=== PATIENT | male | born 1955 | race African-American/Black ===

== ENCOUNTER 2016-10-18 13:37 | Inpatient (IN) | payer OTHER ==
--- NOTE | 2016-10-18 17:12 | HP ---
CIWA Score - CIWA Score Nausea/Vomitin-Mild Nausea/No Vomiting Muscle Tremors: 4-Moderate,w/Arms Extend Anxiety: 4-Mod. Anxious/Guarded Agitation: 4-Moderately Restless Paroxysmal Sweats: 1-Minimal Palms Moist Orientation: 3-Disoriented Date>2 days Tacttile Disturbances: 0-None Auditory Disturbances: 0-None Visual Disturbances: 0-None Headache: 0-None Present CIWA-Ar Total Score: 17 Admission ROS S - HPI Chief Complaint: withdrawal sx Allergies/Adverse Reactions: Allergies Allergy/AdvReac Type Severity Reaction Status Date / Time No Known Allergies Allergy Verified 10/18/16 18:16 History of Present Illness: 61 years old male with long history of alcohol nicotine dependence denies medical denies mental illness is admitted to detox Exam Limitations: No Limitations - Ebola screening Have you traveled outside of the country in the last 21 days: No Have you had contact with anyone from an Ebola affected area: No Have you been sick,other than usual withdrawal symptoms: No Do you have a fever: No - Review of Systems Constitutional: Chills, Loss of Appetite, Changes in sleep, Unintentional Wgt. Loss, Unexplained wgt Loss EENT: reports: No Symptoms Reported Respiratory: reports: No Symptoms reported Cardiac: reports: No Symptoms Reported GI: reports: Nausea, Poor Appetite, Poor Fluid Intake, Abdominal cramping : reports: No Symptoms Reported Musculoskeletal: reports: No Symptoms Reported Integumentary: reports: No Symptoms Reported Neuro: reports: Tremors Endocrine: reports: No Symptoms Reported Hematology: reports: No Symptoms Reported Psychiatric: reports: Judgement Intact, Mood/Affect Appropiate Other Systems: Reviewed and Negative Patient History - Patient Medical History Hx Anemia: No Hx Asthma: No Hx Chronic Obstructive Pulmonary Disease (COPD): No Hx Cancer: No Hx Cardiac Disorders: No Hx Congestive Heart Failure: No Hx Hypertension: No Hx Hypercholesterolemia: No Hx Pacemaker: No HX Cerebrovascular Accident: No Hx Seizures: No Hx Dementia: No Hx Diabetes: No Hx Gastrointestinal Disorders: No Hx Liver Disease: No Hx Genitourinary Disorders: No Hx Sexually Transmitted Disorders: No Hx Renal Disease (ESRD): No Hx Thyroid Disease: No Hx Human Immunodeficiency Virus (HIV): No (2013 LAST NEGATIVE) Hx Hepatitis C: No Hx Depression: No Hx Suicide Attempt: No Hx Bipolar Disorder: No Hx Schizophrenia: No - Patient Surgical History Past Surgical History: Yes Hx Neurologic Surgery: No Hx Cataract Extraction: No Hx Cardiac Surgery: No Hx Lung Surgery: No Hx Breast Surgery: No Hx Breast Biopsy: No Hx Abdominal Surgery: No Hx Appendectomy: No Hx Cholecystectomy: No Hx Genitourinary Surgery: No Hx Orthopedic Surgery: Yes (2015 fall, left ankle fracture) Anesthesia Reaction: No - PPD History Previous Implant?: Yes Documented Results: Negative w/proof Implanted On Prior [facility] Admission?: Yes Date: 02/13/15 Results: 0 MM PPD to be Administered?: Yes - Smoking Cessation Smoking history: Current every day smoker Have you smoked in the past 12 months: Yes Aproximately how many cigarettes per day: 3 Cigars Per Day: 0 Hx Chewing Tobacco Use: No Initiated information on smoking cessation: Yes 'Breaking Loose' booklet given: 10/18/16 - Substance & Tx. History Hx Alcohol Use: Yes Hx Substance Use: No Substance Use Type: Alcohol Hx Substance Use Treatment: Yes - Substances Abused Alcohol Route: Oral Frequency: Daily Amount used: liquor- 2 pints, beer- 2 six pack Age of first use: 22 Date of Last Use: 10/18/16 Family Disease History - Family Disease History Family History: Unremarkable Other Family History: only child Admission Physical Exam BHS - Vital Signs Vital Signs: Vital Signs - 24 hr 10/18/16 16:22 Temperature 97 F L Pulse Rate 98 H Respiratory 20 Rate Blood Pressure 124/83 - Physical General Appearance: Yes: Appropriately Dressed, Moderate Distress, Alcohol on Breath, Thin, Tremorous, Irritable, Sweating, Anxious HEENTM: Yes: Hearing grossly Normal, Normal ENT Inspection, Normocephalic, Normal Voice Respiratory: Yes: Chest Non-Tender, Lungs Clear, Normal Breath Sounds, No Respiratory Distress, No Accessory Muscle Use Neck: Yes: Supple, Trachea in good position Breast: Yes: Breasts Symetrical Cardiology: Yes: Regular Rhythm, S1, S2, Tachycardia Abdominal: Yes: Non Tender, Soft Genitourinary: Yes: Within Normal Limits Back: Yes: Normal Inspection Musculoskeletal: Yes: full range of Motion, Gait Steady Extremities: Yes: Normal Range of Motion, Non-Tender, Tremors Neurological: Yes: Alert, Motor Strength 5/5, Normal Mood/Affect, Normal Response Integumentary: Yes: Warm Lymphatic: Yes: Within Normal Limits - Diagnostic (1) Alcohol dependence with uncomplicated withdrawal Current Visit: Yes Status: Acute (2) Nicotine dependence Current Visit: Yes Status: Acute Qualifiers: Nicotine product type: cigarettes Substance use status: in withdrawal Qualified Code(s): F17.213 - Nicotine dependence, cigarettes, with withdrawal (3) Weight loss Current Visit: Yes Status: Acute Cleared for Admission S - Detox or Rehab S Level of Care: Medically Managed Detox Regimen/Protocol: Librium BHS Breath Alcohol Content Breath Alcohol Content: 0.135 Urine Drug Screen - Results Drug Screen Negative: Yes
[2016-10-18] MEDS ORDERED: IBUPROFEN 400 MG TABLET (FP) PO PRN (19:32)
[2016-10-18] MEDS ORDERED: diphenhydrAMINE HCL 50 MG CAPSULE PO PRN (19:32)
[2016-10-18] MEDS ORDERED: MENTHOL/PHENOL 1 EACH UD MM PRN (19:32)
[2016-10-18] MEDS ORDERED: hydrOXYzine PAMOATE 50 MG CAPSULE (FP) PO PRN (19:32)
[2016-10-18] MEDS ORDERED: ACETAMINOPHEN 325 MG TABLET (FP) PO PRN (19:32)
[2016-10-18] MEDS ORDERED: MAGNESIUM HYDROX 2400MG/30ML ORAL SUSPENSION 30 ML CUP PO PRN (19:32)
[2016-10-18] MEDS ORDERED: guaiFENesin/D-METHORPHAN HB 10 ML UNIT-DOSE CUPS PO PRN (19:32)
[2016-10-18] MEDS ORDERED: P-EPHED 60MG/TRIPROLIDI 2.5MG TABLET PO PRN (19:32)
[2016-10-18] MEDS ORDERED: NICOTINE POLACRILEX 2 MG GUM BC PRN (19:32)
[2016-10-18] MEDS ORDERED: MAGNESIUM CITRATE 300 ML BOTTLE PO PRN (19:32)
[2016-10-18] MEDS ORDERED: MAG HYDROX/AL HYDROX/SIMETH 30 ML UNIT-DOSE CUP PO PRN (19:32)
[2016-10-18] MEDS ORDERED: chlordiazePOXIDE HCL 25 MG CAPSULE PO PRN (19:32)
[2016-10-18] MEDS ORDERED: LOPERAMIDE HCL 2 MG CAPSULE PO PRN (19:32)
[2016-10-18] MEDS: THIAMINE HCL 100 MG TABLET (FP) PO SCH (21:07)
[2016-10-18 22:33] LABS: URINE APPEARANCE CLEAR; URINE BILIRUBIN NEGATIVE (NEGATIVE); URINE BLOOD 1+ (NEGATIVE); URINE COLOR LTYELLOW; URINE GLUCOSE (UA) NEGATIVE (NEGATIVE); URINE KETONE NEGATIVE (NEGATIVE); URINE LEUK ESTERASE NEGATIVE (NEGATIVE); URINE NITRITE NEGATIVE (NEGATIVE); URINE PROTEIN NEGATIVE (NEGATIVE); URINE UROBILINOGEN NEGATIVE E.U./dl (0.2-1.0)
[2016-10-18] MEDS: chlordiazePOXIDE HCL 25 MG CAPSULE PO SCH (22:37)
[2016-10-18 22:38] LABS: URINE BACTERIA RARE /hpf (NONE SEEN); URINE RBC 4 /hpf (0-3); URINE WBC 1 /hpf (3-5)
[2016-10-19] MEDS: chlordiazePOXIDE HCL 25 MG CAPSULE PO SCH ×4 (06:13→23:08)
[2016-10-19 10:36] LABS: MCH 31.2 pg (25.7-33.7); MCHC 32.7 g/dl (32.0-35.9); MEAN CELL VOLUME 95.6 fl (80-96); MEAN PLT VOLUME 11.5 fl (7.5-11.1); PLATELET COUNT 119 K/MM3 (134-434); RDW 14.4 % (11.9-15.9); WHITE BLOOD COUNT 3.8 K/mm3 (4.0-10.0)
[2016-10-19] MEDS: NICOTINE 14 MG/24 HOURS TOPICAL PATCH TD SCH (10:41)
[2016-10-19] MEDS: PRENATAL VITAMINS W/ FOLIC ACID TABLET (FP) PO SCH (10:41)
[2016-10-19 12:23] LABS: ALBUMIN 3.9 g/dl (3.4-5.0); ANION GAP 11 (8-16); CALCIUM 9.6 mg/dL (8.5-10.1); CO2 31 mmol/L (21-32); GLUCOSE,RANDOM 107 mg/dL (74-106); SGOT/AST 143 U/L (15-37); SGPT/ALT 67 U/L (12-78)
[2016-10-19 12:25] LABS: ALK PHOS 97 U/L (45-117); BILIRUBIN,TOTAL 0.6 mg/dL (0.2-1.0); TOT PROT 7.3 g/dl (6.4-8.2)
--- NOTE | 2016-10-19 16:27 | PN ---
[facility] CIWA - CIWA Score Nausea/Vomitin-Mild Nausea/No Vomiting Muscle Tremors: 3 Anxiety: 4-Mod. Anxious/Guarded Agitation: 2 Paroxysmal Sweats: 2 Orientation: 0-Oriented Tacttile Disturbances: 2-Mild Itch/Numbness/Burn Auditory Disturbances: 0-None Visual Disturbances: 2-Mild Sensitivity Headache: 0-None Present CIWA-Ar Total Score: 16 S Progress Note (SOAP) Subjective: Anxious, Sweating. Objective: PT. A & O X 3, OBSERVED AMBULATING ON UNIT. 10/19/16 16:25 Vital Signs Temperature 96.9 F L 10/19/16 13:33 Pulse Rate 95 H 10/19/16 13:33 Respiratory Rate 18 10/19/16 13:33 Blood Pressure 127/88 10/19/16 13:33 O2 Sat by Pulse Oximetry (%) Laboratory Last Values WBC 3.8 K/mm3 (4.0-10.0) L 10/19/16 06:00 RBC 4.00 M/mm3 (4.00-5.60) 10/19/16 06:00 Hgb 12.5 GM/dL (11.7-16.9) 10/19/16 06:00 Hct 38.2 % (35.4-49) 10/19/16 06:00 MCV 95.6 fl (80-96) 10/19/16 06:00 MCHC 32.7 g/dl (32.0-35.9) 10/19/16 06:00 RDW 14.4 % (11.9-15.9) 10/19/16 06:00 Plt Count 119 K/MM3 (134-434) L 10/19/16 06:00 MPV 11.5 fl (7.5-11.1) H 10/19/16 06:00 Sodium 140 mmol/L (136-145) 10/19/16 06:00 Potassium 3.6 mmol/L (3.5-5.1) 10/19/16 06:00 Chloride 98 mmol/L (98-107) 10/19/16 06:00 Carbon Dioxide 31 mmol/L (21-32) 10/19/16 06:00 Anion Gap 11 (8-16) 10/19/16 06:00 BUN 11 mg/dL (7-18) D 10/19/16 06:00 Creatinine 1.0 mg/dL (0.7-1.3) D 10/19/16 06:00 Creat Clearance w eGFR > 60 (>60) 10/19/16 06:00 Random Glucose 107 mg/dL (74-106) H 10/19/16 06:00 Calcium 9.6 mg/dL (8.5-10.1) 10/19/16 06:00 Total Bilirubin 0.6 mg/dL (0.2-1.0) D 10/19/16 06:00 AST 143 U/L (15-37) H 10/19/16 06:00 ALT 67 U/L (12-78) D 10/19/16 06:00 Alkaline Phosphatase 97 U/L (45-117) D 10/19/16 06:00 Total Protein 7.3 g/dl (6.4-8.2) 10/19/16 06:00 Albumin 3.9 g/dl (3.4-5.0) 10/19/16 06:00 Urine Color Ltyellow 10/18/16 21:29 Urine Appearance Clear 10/18/16 21:29 Urine pH 6.0 (5.0-8.0) 10/18/16 21:29 Ur Specific [place] 1.005 (1.001-1.035) 10/18/16 21:29 Urine Protein Negative (NEGATIVE) 10/18/16 21:29 Urine Glucose (UA) Negative (NEGATIVE) 10/18/16 21:29 Urine Ketones Negative (NEGATIVE) 10/18/16 21:29 Urine Blood 1+ (NEGATIVE) H 10/18/16 21:29 Urine Nitrite Negative (NEGATIVE) 10/18/16 21:29 Urine Bilirubin Negative (NEGATIVE) 10/18/16 21:29 Urine Urobilinogen Negative E.U./dl (0.2-1.0) 10/18/16 21:29 Ur Leukocyte Esterase Negative (NEGATIVE) 10/18/16 21:29 Urine RBC 4 /hpf (0-3) 10/18/16 21:29 Urine WBC 1 /hpf (3-5) 10/18/16 21:29 Urine Bacteria Rare /hpf (NONE SEEN) 10/18/16 21:29 RPR Titer Nonreactive (NONREACTIVE) 10/19/16 06:00 LABS NOTED. Assessment: 10/19/16 16:26 WITHDRAWAL SYMPTOMS. Plan: CONTINUE DETOX. ADVISED PATIENT TO FOLLOW-UP WITH MANAGER ENDOSCOPY / REHAB MEDICAL PROVIDER AFTER DISCHARGE FROM DETOX FOR GENERAL MEDICAL ASSESSMENT AND FOR ANY ABNORMAL ADMISSION LAB VALUES.
[2016-10-19] MEDS: THIAMINE HCL 100 MG TABLET (FP) PO SCH (23:08)
[2016-10-20] MEDS: chlordiazePOXIDE HCL 25 MG CAPSULE PO SCH ×3 (05:51→17:33)
[2016-10-20] MEDS: NICOTINE 14 MG/24 HOURS TOPICAL PATCH TD SCH (10:52)
[2016-10-20] MEDS: PRENATAL VITAMINS W/ FOLIC ACID TABLET (FP) PO SCH (10:52)
--- NOTE | 2016-10-20 11:39 | EKG ---
Test Reason : Blood Pressure : / mmHG Vent. Rate : 081 BPM Atrial Rate : 081 BPM P-R Int : 116 ms QRS Dur : 084 ms QT Int : 362 ms P-R-T Axes : 064 071 072 degrees QTc Int : 420 ms NORMAL SINUS RHYTHM NORMAL ECG NO PREVIOUS ECGS AVAILABLE Confirmed by JOEL HARDING MD ([id number]) on 10/20/2016 11:39:14 AM Referred By: Confirmed By:JOEL HARDING MD
--- NOTE | 2016-10-20 12:30 | PN ---
S CIWA - CIWA Score Nausea/Vomitin-Mild Nausea/No Vomiting Muscle Tremors: 4-Moderate,w/Arms Extend Anxiety: 4-Mod. Anxious/Guarded Agitation: 4-Moderately Restless Paroxysmal Sweats: No Perspiration Orientation: 0-Oriented Tacttile Disturbances: 1-Very Mild Itch/Numbness Auditory Disturbances: 0-None Visual Disturbances: 0-None Headache: 2-Mild CIWA-Ar Total Score: 16 BHS Progress Note (SOAP) Subjective: Nausea, Objective: Last Vital Signs Temp Pulse Resp BP Pulse Ox 96.5 F L 104 H 18 144/98 10/20/16 12:09 10/20/16 12:09 10/20/16 12:09 10/20/16 12:09 Laboratory Tests 10/18/16 10/19/16 10/19/16 21:29 06:00 06:00 WBC 3.8 L RBC 4.00 Hgb 12.5 Hct 38.2 MCV 95.6 MCHC 32.7 RDW 14.4 Plt Count 119 L MPV 11.5 H Sodium 140 Potassium 3.6 Chloride 98 Carbon Dioxide 31 Anion Gap 11 BUN 11 D Creatinine 1.0 D Creat Clearance w eGFR > 60 Random Glucose 107 H Calcium 9.6 Total Bilirubin 0.6 D AST 143 H ALT 67 D Alkaline Phosphatase 97 D Total Protein 7.3 Albumin 3.9 Urine Color Ltyellow Urine Appearance Clear Urine pH 6.0 Ur Specific [place] 1.005 Urine Protein Negative Urine Glucose (UA) Negative Urine Ketones Negative Urine Blood 1+ H Urine Nitrite Negative Urine Bilirubin Negative Urine Urobilinogen Negative Ur Leukocyte Esterase Negative Urine RBC 4 Urine WBC 1 Urine Bacteria Rare RPR Titer 10/19/16 06:00 WBC RBC Hgb Hct MCV MCHC RDW Plt Count MPV Sodium Potassium Chloride Carbon Dioxide Anion Gap BUN Creatinine Creat Clearance w eGFR Random Glucose Calcium Total Bilirubin AST ALT Alkaline Phosphatase Total Protein Albumin Urine Color Urine Appearance Urine pH Ur Specific [place] Urine Protein Urine Glucose (UA) Urine Ketones Urine Blood Urine Nitrite Urine Bilirubin Urine Urobilinogen Ur Leukocyte Esterase Urine RBC Urine WBC Urine Bacteria RPR Titer Nonreactive Labs noted: UA noted with microscopic hematuria Assessment: 10/20/16 12:47 Withdrawal symptoms Noted with microscopic hematuria Plan: Continue detox Microscopic hematuria: encouraged to drink lots of water, repeat UA
[2016-10-20] MEDS: chlordiazePOXIDE 5 MG CAPSULE PO SCH (22:29)
[2016-10-20] MEDS: THIAMINE HCL 100 MG TABLET (FP) PO SCH (22:29)
[2016-10-21] MEDS: chlordiazePOXIDE 5 MG CAPSULE PO SCH ×3 (05:44→17:44)
[2016-10-21 10:07] LABS: URINE APPEARANCE CLEAR; URINE BILIRUBIN NEGATIVE (NEGATIVE); URINE BLOOD NEGATIVE (NEGATIVE); URINE COLOR STRAW; URINE GLUCOSE (UA) NEGATIVE (NEGATIVE); URINE KETONE NEGATIVE (NEGATIVE); URINE NITRITE NEGATIVE (NEGATIVE); URINE PROTEIN NEGATIVE (NEGATIVE); URINE UROBILINOGEN NEGATIVE E.U./dl (0.2-1.0)
[2016-10-21 10:08] LABS: URINE LEUK ESTERASE 1+ (NEGATIVE)
[2016-10-21 10:09] LABS: URINE RBC <1 /hpf (0-3); URINE WBC 1 /hpf (3-5)
[2016-10-21] MEDS: NICOTINE 14 MG/24 HOURS TOPICAL PATCH TD SCH (10:48)
[2016-10-21] MEDS: PRENATAL VITAMINS W/ FOLIC ACID TABLET (FP) PO SCH (10:48)
--- NOTE | 2016-10-21 11:11 | PN ---
BHS Progress Note (SOAP) Subjective: Sweating,interrupted sleep,restless Objective: 10/21/16 11:10 Vital Signs - 8 hr 10/21/16 10/21/16 10/21/16 03:30 06:29 09:58 Temperature 96.9 F L 96.4 F L Pulse Rate 107 H 89 Respiratory 18 18 18 Rate Blood Pressure 146/99 136/90 Laboratory Last Values WBC 3.8 K/mm3 (4.0-10.0) L 10/19/16 06:00 RBC 4.00 M/mm3 (4.00-5.60) 10/19/16 06:00 Hgb 12.5 GM/dL (11.7-16.9) 10/19/16 06:00 Hct 38.2 % (35.4-49) 10/19/16 06:00 MCV 95.6 fl (80-96) 10/19/16 06:00 MCHC 32.7 g/dl (32.0-35.9) 10/19/16 06:00 RDW 14.4 % (11.9-15.9) 10/19/16 06:00 Plt Count 119 K/MM3 (134-434) L 10/19/16 06:00 MPV 11.5 fl (7.5-11.1) H 10/19/16 06:00 Sodium 140 mmol/L (136-145) 10/19/16 06:00 Potassium 3.6 mmol/L (3.5-5.1) 10/19/16 06:00 Chloride 98 mmol/L (98-107) 10/19/16 06:00 Carbon Dioxide 31 mmol/L (21-32) 10/19/16 06:00 Anion Gap 11 (8-16) 10/19/16 06:00 BUN 11 mg/dL (7-18) D 10/19/16 06:00 Creatinine 1.0 mg/dL (0.7-1.3) D 10/19/16 06:00 Creat Clearance w eGFR > 60 (>60) 10/19/16 06:00 Random Glucose 107 mg/dL (74-106) H 10/19/16 06:00 Calcium 9.6 mg/dL (8.5-10.1) 10/19/16 06:00 Total Bilirubin 0.6 mg/dL (0.2-1.0) D 10/19/16 06:00 AST 143 U/L (15-37) H 10/19/16 06:00 ALT 67 U/L (12-78) D 10/19/16 06:00 Alkaline Phosphatase 97 U/L (45-117) D 10/19/16 06:00 Total Protein 7.3 g/dl (6.4-8.2) 10/19/16 06:00 Albumin 3.9 g/dl (3.4-5.0) 10/19/16 06:00 Urine Color Straw 10/21/16 07:00 Urine Appearance Clear 10/21/16 07:00 Urine pH 7.0 (5.0-8.0) 10/21/16 07:00 Ur Specific [place] 1.009 (1.001-1.035) 10/21/16 07:00 Urine Protein Negative (NEGATIVE) 10/21/16 07:00 Urine Glucose (UA) Negative (NEGATIVE) 10/21/16 07:00 Urine Ketones Negative (NEGATIVE) 10/21/16 07:00 Urine Blood Negative (NEGATIVE) 10/21/16 07:00 Urine Nitrite Negative (NEGATIVE) 10/21/16 07:00 Urine Bilirubin Negative (NEGATIVE) 10/21/16 07:00 Urine Urobilinogen Negative E.U./dl (0.2-1.0) 10/21/16 07:00 Ur Leukocyte Esterase 1+ (NEGATIVE) H 10/21/16 07:00 Urine RBC <1 /hpf (0-3) 10/21/16 07:00 Urine WBC 1 /hpf (3-5) 10/21/16 07:00 Urine Bacteria Rare /hpf (NONE SEEN) 10/18/16 21:29 RPR Titer Nonreactive (NONREACTIVE) 10/19/16 06:00 labs noted Assessment: 10/21/16 11:10 Withdrawal sx. Plan: Continue detox
[2016-10-21] MEDS: chlordiazePOXIDE HCL 10 MG CAPSULE PO SCH (22:37)
[2016-10-21] MEDS: THIAMINE HCL 100 MG TABLET (FP) PO SCH (22:37)
[2016-10-22] MEDS: chlordiazePOXIDE HCL 10 MG CAPSULE PO SCH (05:30)
[2016-10-22 06:24] VITALS: BP 127/93; PULSE 126; TEMP 97.7
--- NOTE | 2016-10-22 12:07 | DS ---
[facility] Detox Discharge Summary Admission Date: 10/18/16 Discharge Date: 10/22/16 - History Present History: Alcohol Dependence Additional Comments: DETOX COMPLETED. ALERT O X 3. NAD. Pertinent Past History: WEIGHT LOSS S/P LEFT ANKLE FX - Physical Exam Results Vital Signs: Vital Signs Temperature 97.7 F 10/22/16 06:23 Pulse Rate 126 H 10/22/16 06:23 Respiratory Rate 18 10/22/16 06:23 Blood Pressure 127/93 10/22/16 06:23 O2 Sat by Pulse Oximetry (%) Pertinent Admission Physical Exam Findings: WITHDRAWAL SX - Treatment Hospital Course: Detox Protocol Followed, Detoxed Safely, Responded well, Discharged Condition Good - Medication Discharge Medications: Ambulatory Orders NK [No Known Home Medication] 02/11/15 - Diagnosis (1) Alcohol dependence with uncomplicated withdrawal Status: Acute (2) Nicotine dependence Status: Acute Qualifiers: Nicotine product type: cigarettes Substance use status: in withdrawal Qualified Code(s): F17.213 - Nicotine dependence, cigarettes, with withdrawal (3) Weight loss Status: Acute - AMA Did Patient Leave Against Medical Advice: No
== END 2016-10-22 09:29 | disposition home or self-care (01) | DRG 775 ==
LOC: YASAS 13:37 → Y3N 20:05
PROVIDERS: ADMIT Internal Medicine Addiction Medicine; ATTEND Internal Medicine Addiction Medicine
PROC: HZ2ZZZZ Detoxification Services for Substance Abuse Treatment (ICD-10-PCS; principal; 2016-10-22)
DX: F10.230 Alcohol dependence with withdrawal, uncomplicated (principal); F17.213 Nicotine dependence, cigarettes, with withdrawal; R63.4 Abnormal weight loss; Z68.20 Body mass index [BMI] 20.0-20.9, adult; Z59.0 Homelessness
CPT/HCPCS: 36415; 80053; 81003; 81015; 85027; 86593; 93005; 93010

== ENCOUNTER 2018-06-28 17:44 | Inpatient (IN) | payer OTHER ==
--- NOTE | 2018-06-28 18:00 | HP ---
CIWA Score Nausea/Vomitin Muscle Tremors: 2 Anxiety: 2 Agitation: 2 Paroxysmal Sweats: 1-Minimal Palms Moist Orientation: 0-Oriented Tacttile Disturbances: 1-Very Mild Itch/Numbness Auditory Disturbances: 1-Very Mild Visual Disturbances: 0-None Headache: 2-Mild CIWA-Ar Total Score: 13 - Admission Criteria [facility] Guidelines: Admission for Medically Managed Detox: Requires at least one of the followin. CIWA greater than 12 2. Seizures within the past 24 hours 3. Delirium tremens within the past 24 hours 4. Hallucinations within the past 24 hours 5. Acute intervention needed for co occurring medical disorder 6. Acute intervention needed for co occurring psychiatric disorder 7. Severe withdrawal that cannot be handled at a lower level of care (continued vomiting, continued diarrhea, abnormal vital signs) requiring intravenous medication and/or fluids 8. Patient presents the following: CIWA greater than 12 Admission Criteria Met: Admission criteria met Admission ROS BHS - HPI Chief Complaint: i need help to stop drinking alcohol Allergies/Adverse Reactions: Allergies Allergy/AdvReac Type Severity Reaction Status Date / Time No Known Allergies Allergy Verified 06/28/18 17:53 History of Present Illness: this 63 years old male with alcohol dependence,seeking help to stop,seen in [facility] today, last detox 10/18/17 to 10/22/16 syncope alcohol related nicotine dependence history of fx of left ankle in 2017 no significant period of sobriety Exam Limitations: No Limitations, Intoxication - Ebola screening Have you traveled outside of the country in the last 21 days: No Have you been sick,other than usual withdrawal symptoms: No - Review of Systems Constitutional: Malaise, Night Sweats, Changes in sleep, Weakness, Unintentional Wgt. Loss EENT: reports: Nose Congestion Respiratory: reports: No Symptoms reported Cardiac: reports: Palpitations GI: reports: Nausea, Poor Appetite, Abdominal cramping : reports: No Symptoms Reported Musculoskeletal: reports: Back Pain, Muscle Pain Integumentary: reports: Dryness Neuro: reports: Tremors Endocrine: reports: No Symptoms Reported Hematology: reports: No Symptoms Reported Psychiatric: reports: No Sypmtoms Reported, Judgement Intact, Mood/Affect Appropiate, Orientated x3 Patient History - Patient Medical History Hx Anemia: No Hx Asthma: No Hx Chronic Obstructive Pulmonary Disease (COPD): No Hx Cancer: No Hx Cardiac Disorders: No Hx Congestive Heart Failure: No Hx Hypertension: No Hx Hypercholesterolemia: No Hx Pacemaker: No HX Cerebrovascular Accident: No Hx Seizures: No Hx Dementia: No Hx Diabetes: No Hx Gastrointestinal Disorders: No Hx Liver Disease: No Hx Genitourinary Disorders: No Hx Sexually Transmitted Disorders: No Hx Renal Disease (ESRD): No Hx Thyroid Disease: No Hx Human Immunodeficiency Virus (HIV): No (2017 LAST NEGATIVE) Hx Hepatitis C: No Hx Depression: No Hx Suicide Attempt: No Hx Bipolar Disorder: No Hx Schizophrenia: No Other Medical History: no suicidal,no homicidal - Patient Surgical History Past Surgical History: Yes Hx Neurologic Surgery: No Hx Cataract Extraction: No Hx Cardiac Surgery: No Hx Lung Surgery: No Hx Breast Surgery: No Hx Breast Biopsy: No Hx Abdominal Surgery: No Hx Appendectomy: No Hx Cholecystectomy: No Hx Genitourinary Surgery: No Hx Section: No Hx Orthopedic Surgery: Yes (2017 fall, left ankle fracture) Anesthesia Reaction: No - PPD History Previous Implant?: Yes Documented Results: Negative w/o proof Implanted On Prior [facility] Admission?: Yes Date: 10/20/16 Results: 0 MM PPD to be Administered?: Yes - Smoking Cessation Smoking history: Current every day smoker Have you smoked in the past 12 months: Yes Aproximately how many cigarettes per day: 3 Cigars Per Day: 0 Hx Chewing Tobacco Use: No Initiated information on smoking cessation: Yes 'Breaking Loose' booklet given: 06/28/18 - Substance & Tx. History Hx Alcohol Use: Yes Hx Substance Use: No Substance Use Type: Alcohol Hx Substance Use Treatment: Yes ([facility] 10/18/16 to 10/22/16) - Substances Abused Alcohol Route: Oral Frequency: Daily Amount used: 2 and half pints of vodka Age of first use: 22 Date of Last Use: 06/28/18 Family Disease History - Family Disease History Family History: Denies Admission Physical Exam S - Vital Signs Vital Signs: Vital Signs - 24 hr 06/28/18 17:50 Temperature 98.2 F Pulse Rate 100 H Respiratory 18 Rate Blood Pressure 133/83 - Physical General Appearance: Yes: Moderate Distress, Alcohol on Breath, Tremorous, Sweating, Anxious HEENTM: Yes: Normal ENT Inspection, ANDRY, Pharynx Normal Respiratory: Yes: Lungs Clear, Normal Breath Sounds, No Respiratory Distress Neck: Yes: Within Normal Limits, Supple, Trachea in good position Breast: Yes: Within Normal Limits Cardiology: Yes: Tachycardia Abdominal: Yes: Within Normal Limits, Normal Bowel Sounds, Non Tender, Flat, Soft Genitourinary: Yes: Within Normal Limits Back: Yes: Muscle Spasm Musculoskeletal: Yes: Back pain, Muscle Pain Extremities: Yes: Tremors (s/p fx of left ankle), Other (scar of left ankle ulcer left second digit toe ,poor hygiene of toes) 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, Fully Oriented, Alert, Motor Strength 5/5 Integumentary: Yes: Dry Lymphatic: Yes: Within Normal Limits - Diagnostic (1) Alcohol dependence with uncomplicated withdrawal Current Visit: No Status: Acute (2) Nicotine dependence Current Visit: No Status: Acute Qualifiers: Nicotine product type: cigarettes Substance use status: in withdrawal Qualified Code(s): F17.213 - Nicotine dependence, cigarettes, with withdrawal (3) Weight loss Current Visit: No Status: Acute (4) Alcohol dependence with uncomplicated intoxication Current Visit: Yes Status: Acute (5) History of fracture of left ankle Current Visit: Yes Status: Acute (6) Ulcer of left second toe Current Visit: Yes Status: Acute Cleared for Admission [facility] - Detox or Rehab [facility] Level of Care: Medically Managed Detox Regimen/Protocol: Librium S Breath Alcohol Content Breath Alcohol Content: 0.344 Urine Drug Screen - Results Drug Screen Negative: Yes
[2018-06-28] MEDS ORDERED: MAGNESIUM CITRATE 300 ML BOTTLE PO PRN (18:11)
[2018-06-28] MEDS ORDERED: hydrOXYzine PAMOATE 25 MG CAPSULE (FP) PO PRN (18:11)
[2018-06-28] MEDS ORDERED: chlordiazePOXIDE HCL 25 MG CAPSULE PO PRN (18:11)
[2018-06-28] MEDS ORDERED: MAGNESIUM HYDROX 2400MG/30ML ORAL SUSPENSION 30 ML CUP PO PRN (18:11)
[2018-06-28] MEDS ORDERED: LOPERAMIDE HCL 2 MG CAPSULE PO PRN (18:11)
[2018-06-28] MEDS ORDERED: guaiFENesin/D-METHORPHAN HB 10 ML UNIT-DOSE CUPS PO PRN (18:11)
[2018-06-28] MEDS ORDERED: MAG HYDROX/AL HYDROX/SIMETH 30 ML UNIT-DOSE CUP PO PRN (18:11)
[2018-06-28] MEDS ORDERED: ACETAMINOPHEN 325 MG TABLET (FP) PO PRN (18:11)
[2018-06-28] MEDS ORDERED: MENTHOL/PHENOL 1 EACH UD MM PRN (18:11)
[2018-06-28] MEDS ORDERED: P-EPHED 60MG/TRIPROLIDI 2.5MG TABLET PO PRN (18:11)
[2018-06-28] MEDS ORDERED: IBUPROFEN 400 MG TABLET (FP) PO PRN (18:11)
[2018-06-28 18:24] VITALS: BMI 19.3
[2018-06-28] MEDS ORDERED: MELATONIN 5 MG TABLETS PO PRN (22:00)
[2018-06-28] MEDS: chlordiazePOXIDE HCL 25 MG CAPSULE PO SCH (23:44)
[2018-06-28] MEDS: BACITRACIN 0.9 GM PACKET TP SCH (23:44)
[2018-06-28] MEDS: THIAMINE HCL 100 MG TABLET (FP) PO SCH (23:45)
[2018-06-29 00:45] LABS: URINE APPEARANCE CLEAR; URINE BILIRUBIN NEGATIVE (<2.0 mg/dL); URINE COLOR STRAW; URINE GLUCOSE (UA) NEGATIVE (NEGATIVE); URINE KETONE NEGATIVE (NEGATIVE); URINE LEUK ESTERASE NEGATIVE (NEGATIVE); URINE NITRITE NEGATIVE (NEGATIVE); URINE PROTEIN NEGATIVE (NEGATIVE); URINE UROBILINOGEN NEGATIVE mg/dL (0.2-1.0)
[2018-06-29] MEDS: chlordiazePOXIDE HCL 25 MG CAPSULE PO SCH ×4 (05:14→22:20)
[2018-06-29] MEDS ORDERED: PRENATAL VITAMINS W/ FOLIC ACID TABLET (FP) PO SCH (10:00)
[2018-06-29] MEDS: BACITRACIN 0.9 GM PACKET TP SCH ×2 (10:19→22:43)
--- NOTE | 2018-06-29 10:29 | PN ---
S CIWA - CIWA Score Nausea/Vomitin-No Nausea/No Vomiting Muscle Tremors: 2 Anxiety: 3 Agitation: 3 Paroxysmal Sweats: No Perspiration Orientation: 1-Uncertain about Date Tacttile Disturbances: 0-None Auditory Disturbances: 0-None Visual Disturbances: 0-None Headache: 0-None Present CIWA-Ar Total Score: 9 BHS Progress Note (SOAP) Subjective: PATIENT C/O ANXIETY, RESTLESSNESS AND SHAKES. Objective: 06/29/18 10:25 Laboratory Tests 06/29/18 00:15 Urine Color Straw Urine Appearance Clear Urine pH 6.0 Ur Specific [place] 1.004 L Urine Protein Negative Urine Glucose (UA) Negative Urine Ketones Negative Urine Blood 2+ H Urine Nitrite Negative Urine Bilirubin Negative Urine Urobilinogen Negative Ur Leukocyte Esterase Negative Urine WBC (Auto) <1 Urine RBC (Auto) <1 Laboratory Tests 06/29/18 00:15 Urine Color Straw Urine Appearance Clear Urine pH 6.0 Ur Specific [place] 1.004 L Urine Protein Negative Urine Glucose (UA) Negative Urine Ketones Negative Urine Blood 2+ H Urine Nitrite Negative Urine Bilirubin Negative Urine Urobilinogen Negative Ur Leukocyte Esterase Negative Urine WBC (Auto) <1 Urine RBC (Auto) <1 Vital Signs Temperature 97.3 F L 06/29/18 09:05 Pulse Rate 98 H 06/29/18 09:05 Respiratory Rate 20 06/29/18 09:05 Blood Pressure 151/93 06/29/18 09:05 O2 Sat by Pulse Oximetry (%) PE: ALERT AND ORIENTED, FORGETFUL WITH DATE SKIN WARM AND DRY CAR S1S2 RESP CTA BL EXT FULL ROM, +TREMORS ANXIOUS, PACING ON UNIT 06/29/18 10:28 Assessment: 06/29/18 10:27 WITHDRAWAL SX Plan: CONTINUE DETOX ENCOURAGE ORAL FLUIDS REPEAT UA CONTINUE TO MONITOR
[2018-06-29 10:34] LABS: HEMATOCRIT 36.5 % (35.4-49); HEMOGLOBIN 11.9 GM/dL (11.7-16.9); MCH 30.7 pg (25.7-33.7); MCHC 32.7 g/dl (32.0-35.9); MEAN CELL VOLUME 93.8 fl (80-96); MEAN PLT VOLUME 9.8 fl (7.5-11.1); PLATELET COUNT 266 K/MM3 (134-434); RBC 3.89 M/mm3 (4.00-5.60); RDW 13.6 % (11.9-15.9); WHITE BLOOD COUNT 5.9 K/mm3 (4.0-10.0)
[2018-06-29 11:08] LABS: ALBUMIN 3.1 g/dl (3.4-5.0); ALK PHOS 89 U/L (45-117); ANION GAP 10 MMOL/L (8-16); BILIRUBIN,TOTAL 0.6 mg/dL (0.2-1); BLOOD UREA NITROGEN 8 mg/dL (7-18); CALCIUM 9.3 mg/dL (8.5-10.1); CHLORIDE 105 mmol/L (98-107); CO2 28 mmol/L (21-32); CREATININE 0.8 mg/dL (0.55-1.3); GLUCOSE,RANDOM 68 mg/dL (74-106); POTASSIUM 4.3 mmol/L (3.5-5.1); SGOT/AST 45 U/L (15-37); SGPT/ALT 22 U/L (13-61); SODIUM 142 mmol/L (136-145); TOT PROT 6.8 g/dl (6.4-8.2)
[2018-06-29] MEDS: THIAMINE HCL 100 MG TABLET (FP) PO SCH (22:20)
[2018-06-30] MEDS: chlordiazePOXIDE HCL 25 MG CAPSULE PO SCH (05:54)
--- NOTE | 2018-06-30 08:34 | PN ---
S Progress Note Note: pt states he is going to his daughters home and wants to leave, pt signed out AMA.
--- NOTE | 2018-06-30 08:38 | DS ---
[facility] Detox Discharge Summary Admission Date: 06/28/18 - History Present History: Alcohol Dependence - Physical Exam Results Vital Signs: Vital Signs Temperature 96.4 F L 06/30/18 06:51 Pulse Rate 108 H 06/30/18 06:51 Respiratory Rate 20 06/30/18 06:51 Blood Pressure 138/96 06/30/18 06:51 O2 Sat by Pulse Oximetry (%) - Treatment Hospital Course: Discharged Condition Good - Medication Discharge Medications: Ambulatory Orders NK [No Known Home Medication] 02/11/15 - Diagnosis (1) History of fracture of left ankle Current Visit: Yes Status: Acute (2) Ulcer of left second toe Current Visit: Yes Status: Acute (3) Alcohol dependence with uncomplicated withdrawal Current Visit: Yes Status: Chronic (4) Nicotine dependence Current Visit: Yes Status: Chronic Qualifiers: Nicotine product type: cigarettes Substance use status: uncomplicated Qualified Code(s): F17.210 - Nicotine dependence, cigarettes, uncomplicated (5) Weight loss Current Visit: No Status: Acute - AMA Did Patient Leave Against Medical Advice: Yes (going home)
[2018-06-30 09:20] VITALS: BP 143/89; PULSE 128; TEMP 97.7
[2018-06-30] MEDS ORDERED: chlordiazePOXIDE 5 MG CAPSULE PO SCH (23:00)
[2018-07-01] MEDS ORDERED: chlordiazePOXIDE HCL 10 MG CAPSULE PO SCH (23:00)
== END 2018-06-30 09:10 | disposition left against medical advice (07) | DRG 770 ==
LOC: YASAS 17:44 → Y6N 17:54
PROVIDERS: ADMIT Neuromusculoskeletal Medicine & OMM; ATTEND Neuromusculoskeletal Medicine & OMM
PROC: HZ2ZZZZ Detoxification Services for Substance Abuse Treatment (ICD-10-PCS; principal; 2018-06-28)
DX: F10.230 Alcohol dependence with withdrawal, uncomplicated (principal); F17.210 Nicotine dependence, cigarettes, uncomplicated; L97.529 Non-pressure chronic ulcer of other part of left foot with unspecified severity; R00.0 Tachycardia, unspecified; Z59.0 Homelessness
CPT/HCPCS: 36415; 80053; 81003; 81015; 85027; 86593

== ENCOUNTER 2019-07-03 10:08 | Inpatient (IN) | payer OTHER ==
--- NOTE | 2019-07-03 10:38 | HP ---
Screened but not Admitted - Documentation of Visit Screened but not Admitted: Yes Left Prior to Completion of Assessment: No Insurance Authorization Denied: No Patient Does Not Meet Criteria for Admission: No Level of Care Recommended at this Time: ER Evaluation/Care (Patient extremely groggy, unable to provide answers, mildly yellow sclera, 95/66 P83, O2 sat 96 , blood sugar =207, narcan given with little change - patient sent to ED for further evaluation and treatment)
[2019-07-03 11:17] VITALS: BMI 19.8
--- NOTE | 2019-07-03 14:10 | HP ---
CIWA Score Nausea/Vomitin Muscle Tremors: 2 Anxiety: 2 Agitation: 1-Slight > Activity Paroxysmal Sweats: 1-Minimal Palms Moist Orientation: 3-Disoriented Date>2 days Tacttile Disturbances: 0-None Auditory Disturbances: 0-None Visual Disturbances: 0-None Headache: 2-Mild CIWA-Ar Total Score: 13 - Admission Criteria OASAS Guidelines: Admission for Medically Managed Detox: Requires at least one of the followin. CIWA greater than 12 2. Seizures within the past 24 hours 3. Delirium tremens within the past 24 hours 4. Hallucinations within the past 24 hours 5. Acute intervention needed for co occurring medical disorder 6. Acute intervention needed for co occurring psychiatric disorder 7. Severe withdrawal that cannot be handled at a lower level of care (continued vomiting, continued diarrhea, abnormal vital signs) requiring intravenous medication and/or fluids 8. Patient presents the following: CIWA greater than 12 Admission Criteria Met: Admission criteria met Admitting History and Physical - Admission History Source: Patient, Medical Record - Past Medical History Psych: Yes: Addictions - Smoking History Smoking history: Current every day smoker Have you smoked in the past 12 months: Yes Aproximately how many cigarettes per day: 3 - Alcohol/Substance Use Hx Alcohol Use: Yes - Social History Usual Living Arrangement: Yes: With Child (lives with adult daughter) ADL: Support Services Admission ROS [facility] Chief Complaint: My doctor said to stop drinking altogether and go get help Allergies/Adverse Reactions: Allergies Allergy/AdvReac Type Severity Reaction Status Date / Time No Known Allergies Allergy Verified 07/03/19 11:05 History of Present Illness: 64 yo gentleman here for detox from alcohol. Patient denies seizures but has had black outs. This is one of several admissions for treatment. Patient states he gets his medical care at [facility]. Lives with his daughter. Patient admits to drinking most days, first thing in the morning. Exam Limitations: No Limitations - Ebola screening Have you traveled outside of the country in the last 21 days: No Have you had contact with anyone from an Ebola affected area: No - Review of Systems Constitutional: Malaise, Changes in sleep, Weakness EENT: reports: Hearing Loss Respiratory: reports: No Symptoms reported Cardiac: reports: No Symptoms Reported GI: reports: Nausea, Poor Appetite, Poor Fluid Intake : reports: Frequency Musculoskeletal: reports: No Symptoms Reported Integumentary: reports: Dryness Neuro: reports: Headache Endocrine: reports: No Symptoms Reported Hematology: reports: No Symptoms Reported Psychiatric: reports: Judgement Intact, Mood/Affect Appropiate, Anxious Other Systems: Reviewed and Negative Patient History - Patient Medical History Hx Anemia: No (sickle trait) Hx Asthma: No Hx Chronic Obstructive Pulmonary Disease (COPD): No Hx Cancer: No Hx Cardiac Disorders: No Hx Congestive Heart Failure: No Hx Hypertension: No Hx Hypercholesterolemia: No Hx Pacemaker: No HX Cerebrovascular Accident: No Hx Seizures: No (denies) Hx Dementia: No Hx Diabetes: No Hx Gastrointestinal Disorders: No Hx Liver Disease: No Hx Genitourinary Disorders: No Hx Sexually Transmitted Disorders: No Hx Renal Disease (ESRD): No Hx Thyroid Disease: No Hx Human Immunodeficiency Virus (HIV): No (2017 LAST NEGATIVE) Hx Hepatitis C: No Hx Depression: No Hx Suicide Attempt: No Hx Bipolar Disorder: No Hx Schizophrenia: No - Patient Surgical History Past Surgical History: Yes Hx Neurologic Surgery: No Hx Cataract Extraction: No Hx Cardiac Surgery: No Hx Lung Surgery: No Hx Breast Surgery: No Hx Breast Biopsy: No Hx Abdominal Surgery: No Hx Appendectomy: No Hx Cholecystectomy: No Hx Genitourinary Surgery: No Hx Section: No Hx Orthopedic Surgery: Yes (2017 fall, left ankle fracture) Anesthesia Reaction: No - PPD History Previous Implant?: Yes Documented Results: Negative w/proof Implanted On Prior [facility] Admission?: Yes Date: 10/20/16 Results: 0 MM PPD to be Administered?: Yes - Reproductive History Patient is a Female of Child Bearing Age (11 -55 yrs old): No - Smoking Cessation Smoking history: Current every day smoker Have you smoked in the past 12 months: Yes Aproximately how many cigarettes per day: 2 Cigars Per Day: 0 Hx Chewing Tobacco Use: No Initiated information on smoking cessation: Yes 'Breaking Loose' booklet given: 07/03/19 (give on floor) - Substance & Tx. History Hx Alcohol Use: Yes Hx Substance Use: No Substance Use Type: Alcohol Hx Substance Use Treatment: Yes - Substances abused Alcohol Substance route: Oral Frequency: 3-6 times per week Amount used: 1 pints of vodka/day Age of first use: 22 Date of last use: 07/03/19 Admission Physical Exam [facility] - Vital Signs Vital Signs: Vital Signs - 24 hr 07/03/19 11:14 Temperature 98.9 F Pulse Rate 102 H Respiratory 20 Rate Blood Pressure 92/60 - Physical General Appearance: Yes: Nourished, Disheveled, Mild Distress, Anxious HEENTM: Yes: EOMI, Hearing grossly Normal, Normocephalic, Pharynx Normal, Hearing Decreased, Other (missing teeth;eyes are rheumy) Respiratory: Yes: No Respiratory Distress, Rhonchi Neck: Yes: No masses,lesions,Nodules Breast: Yes: Breast Exam Deferred Cardiology: Yes: Regular Rhythm, Tachycardia Abdominal: Yes: Flat, Soft Genitourinary: Yes: Frequency Back: Yes: Decreased Range of Motion, Other (foreward head) Musculoskeletal: Yes: Gait Steady Extremities: Yes: Normal Inspection Neurological: Yes: Alert Integumentary: Yes: Normal Color, Dry, Warm Lymphatic: Yes: Within Normal Limits - Diagnostic (1) Alcohol dependence with uncomplicated withdrawal Current Visit: Yes Status: Chronic (2) History of fracture of left ankle Current Visit: Yes Status: Chronic (3) Weight loss Current Visit: Yes Status: Suspected (4) Nicotine dependence Current Visit: Yes Status: Chronic Qualifiers: Nicotine product type: cigarettes Substance use status: uncomplicated Qualified Code(s): F17.210 - Nicotine dependence, cigarettes, uncomplicated (5) Hearing decreased Current Visit: Yes Status: Chronic Qualifiers: Laterality: bilateral Qualified Code(s): H91.93 - Unspecified hearing loss , bilateral Cleared for Admission S - Detox or Rehab [facility] Level of Care: Medically Managed Detox Regimen/Protocol: Not Applicable (ativan) Breathalyzer - Breathalyzer Breathalyzer: 0.210 Urine Drug Screen - Test Device Lot number: [id number] Expiration date: 03/03/21 - Control Is test valid?: Yes - Results Drug screen NEGATIVE: Yes Inpatient Rehab Admission - Rehab Decision to Admit Inpatient rehab admission?: No
[2019-07-03] MEDS ORDERED: LORazepam 2 MG TABLET PO ONE (14:25)
[2019-07-03] MEDS ORDERED: LORazepam 1 MG TABLET PO PRN (14:25)
[2019-07-03] MEDS ORDERED: NICOTINE 21 MG/24 HOURS TOPICAL PATCH TD PRN (14:25)
[2019-07-03] MEDS ORDERED: ACETAMINOPHEN 325 MG TABLET (FP) PO PRN ×2 (14:25)
[2019-07-03] MEDS ORDERED: hydrOXYzine PAMOATE 25 MG CAPSULE (FP) PO PRN (14:25)
[2019-07-03] MEDS ORDERED: BISMUTH SUBSALICYLATE 524 MG/30 ML UD PO PRN (14:25)
[2019-07-03] MEDS ORDERED: MENTHOL/PHENOL 1 EACH UD MM PRN (14:25)
[2019-07-03] MEDS ORDERED: IBUPROFEN 400 MG TABLET (FP) PO PRN (14:25)
[2019-07-03] MEDS ORDERED: MAGNESIUM HYDROX 2400MG/30ML ORAL SUSPENSION 30 ML CUP PO PRN (14:25)
[2019-07-03] MEDS ORDERED: MAGNESIUM CITRATE 300 ML BOTTLE PO PRN (14:25)
[2019-07-03] MEDS ORDERED: METHOCARBAMOL 500 MG TABLET PO PRN (14:25)
[2019-07-03] MEDS ORDERED: MAG HYDROX/AL HYDROX/SIMETH 30 ML UNIT-DOSE CUP PO PRN (14:25)
[2019-07-03] MEDS ORDERED: MELATONIN 5 MG TABLETS PO PRN (22:00)
[2019-07-03] MEDS ORDERED: THIAMINE HCL 100 MG TABLET (FP) PO SCH (22:00)
[2019-07-04 09:14] VITALS: BP 124/91; PULSE 116; TEMP 96.8
[2019-07-04] MEDS ORDERED: PRENATAL VITAMINS W/ FOLIC ACID TABLET (FP) PO SCH (10:00)
--- NOTE | 2019-07-04 10:03 | DS ---
[facility] Detox Discharge Summary Admission Date: 07/03/19 Discharge Date: 07/04/19 - History Present History: Alcohol Dependence Additional Comments: 64 years old male admitted on 07/03/19 for alcohol withdrawal sx management treated with ativan detox regimen patient is alert oriented x 3 speech clearly coherently ambulating steady gait on hallway ate breakfast no trouble chewing swallowing patient insists to leave the detox unit "they want me to come here" patient prefers to stay home with his daughter "my daughter is home the weekend " Pertinent Past History: patient refuses discharge ciwa refuses discharge physical examination - Physical Exam Results Vital Signs: Vital Signs Temperature 96.8 F L 07/04/19 09:14 Pulse Rate 116 H 07/04/19 09:14 Respiratory Rate 20 07/04/19 09:14 Blood Pressure 124/91 07/04/19 09:14 O2 Sat by Pulse Oximetry (%) Pertinent Admission Physical Exam Findings: alcohol withdrawal sx lab pending - Treatment Hospital Course: Detox Protocol Followed, Responded well Patient has Accepted a Rehab Referral to: community support approach - Medication Discharge Medications: Ambulatory Orders NK [No Known Home Medication] 02/11/15 - Diagnosis (1) Alcohol dependence with uncomplicated withdrawal Current Visit: Yes Status: Acute (2) Nicotine dependence Current Visit: Yes Status: Acute Qualifiers: Nicotine product type: cigarettes Substance use status: in withdrawal Qualified Code(s): F17.213 - Nicotine dependence, cigarettes, with withdrawal (3) Weight loss Current Visit: Yes Status: Chronic - AMA Did Patient Leave Against Medical Advice: Yes
[2019-07-04 12:44] LABS: HEMATOCRIT 39.7 % (35.4-49); HEMOGLOBIN 13.3 GM/dL (11.7-16.9); MCHC 33.5 g/dl (32.0-35.9); MEAN CELL VOLUME 92.4 fl (80-96); MEAN PLT VOLUME 10.9 fl (7.5-11.1); PLATELET COUNT 162 K/MM3 (134-434); RBC 4.29 M/mm3 (4.00-5.60); RDW 14.4 % (11.9-15.9); WHITE BLOOD COUNT 8.6 K/mm3 (4.0-10.0)
[2019-07-04 12:52] LABS: ALBUMIN 3.5 g/dl (3.4-5.0); BLOOD UREA NITROGEN 16.7 mg/dL (7-18); CALCIUM 10.1 mg/dL (8.5-10.1); CREATININE 0.9 mg/dL (0.55-1.3); POTASSIUM 3.7 mmol/L (3.5-5.1); TOT PROT 7.4 g/dl (6.4-8.2)
[2019-07-05] MEDS ORDERED: LORazepam 1 MG TABLET PO SCH (05:00)
[2019-07-06] MEDS ORDERED: LORazepam 0.5 MG TABLET PO PRN
[2019-07-06] MEDS ORDERED: LORazepam 0.5 MG TABLET PO SCH (05:00)
[2019-07-07] MEDS ORDERED: LORazepam 0.5 MG TABLET PO ONE (05:00)
== END 2019-07-04 09:32 | disposition left against medical advice (07) | DRG 770 ==
LOC: YASAS 10:08 → Y3N 14:26
PROVIDERS: ADMIT Allergy & Immunology; ATTEND Allergy & Immunology
PROC: HZ2ZZZZ Detoxification Services for Substance Abuse Treatment (ICD-10-PCS; principal; 2019-07-03)
DX: F10.230 Alcohol dependence with withdrawal, uncomplicated (principal); F17.213 Nicotine dependence, cigarettes, with withdrawal; H91.93 Unspecified hearing loss, bilateral; D57.3 Sickle-cell trait; R63.4 Abnormal weight loss; Z68.1 Body mass index [BMI] 19.9 or less, adult; Z87.81 Personal history of (healed) traumatic fracture; Z59.0 Homelessness
CPT/HCPCS: 36415; 80053; 85027; 86593